=== PATIENT | female | born 1975 | race Caucasian/White ===

== ENCOUNTER 2021-04-22 18:37 | Emergency (ER) | payer BC ==
[~2021-04-22] VITALS: Ht 157.5 cm; Wt 76.7 kg
--- NOTE | 2021-04-22 18:46 | NUR ---
BIB FAMILY C/O FACIAL AREA REDNESS, GENERALIZED REDNESS ALL OVER BODY, BURNING SENSATION, PALPITATION S/P EATING POKE 1/2 HOUR AGO. DENIES SOB. TO ER BED 2, HOOKED TO MONITOR, NOTED ELEVATED HR, CHANGED TO HOSP GOWN, WARM BLANKET PROVIDED. PATIENT AAO x , RESPIRATIONS EVEN AND UNLABORED. DR BARBA AT BEDSIDE
[2021-04-22] MEDS ORDERED: PRED50TA PO (18:58)
[2021-04-22] MEDS ORDERED: DIPH50CA4 PO (18:58)
[2021-04-22] MEDS ORDERED: FAMO-131 PO (18:58)
[2021-04-22] MEDS ORDERED: FAMOTIDINE (20 MG) 20 MG TABLET PO ONE (19:00)
[2021-04-22] MEDS ORDERED: methylPREDNISolone SOD SUCC 125 MG/2ML VIAL IM ONE (19:00)
[2021-04-22] MEDS ORDERED: diphenhydrAMINE HCL 50 MG CAPSULE PO ONE (19:00)
[2021-04-22] MEDS ORDERED: diphenhydrAMINE HCL 50 MG CAPSULE ONE (19:06)
[2021-04-22] MEDS ORDERED: methylPREDNISolone SOD SUCC 125 MG/2ML VIAL ONE (19:06)
[2021-04-22] MEDS ORDERED: FAMOTIDINE (20 MG) 20 MG TABLET ONE (19:07)
--- NOTE | 2021-04-22 19:21 | NUR ---
Patient discharged to home in stable condition. Written and verbal after care instructions given. Patient verbalizes understanding of instruction.
[2021-04-22 19:22] VITALS: BP 132/90
== END 2021-04-22 19:23 | disposition home or self-care (01) ==
LOC: ER 18:39
DX: T78.1XXA Other adverse food reactions, not elsewhere classified, initial encounter (principal); Z79.899 Other long term (current) drug therapy; X58.XXXA Exposure to other specified factors, initial encounter
CPT/HCPCS: 96372; 99283; J2930; Q0163

== ENCOUNTER → 2021-04-23 | Emergency (ER) | payer BC ==
[~2021-04-23] VITALS: Ht 157.5 cm; Wt 72.6 kg
[~2021-04-23] MED LIST: DIPH50CA4 PO; FAMO-131 PO; FAMOTIDINE/PF INJ 20 MG/2 ML VIAL IV ONE; PRED50TA PO; diphenhydrAMINE HCL 50 MG/ML VIAL ONE; methylPREDNISolone SOD SUCC 125 MG/2ML VIAL ONE
--- NOTE | 2021-04-23 21:01 | NUR ---
TO ER BED 7. BIBS C/O "ITCHY THROAT/NECK" WAS SEEN YESTERDAY FOR SAME ISSUE. PT STATES REACTION IS DUE TO EATING FISH. SWELLING AND REDNESS NOTED ON NECK. PT DENIES CHEST PAIN OR SOB. CONNECTED TO MONITOR. AWAITING MD GARCIA
--- NOTE | 2021-04-23 21:40 | NUR ---
IV LINE ESTABLISHED, RAC 20G
[2021-04-23] MEDS: diphenhydrAMINE HCL 50 MG/ML VIAL IV ONE (21:48)
[2021-04-23] MEDS: FAMOTIDINE/PF INJ 20 MG/2 ML VIAL IV ONE (21:49)
[2021-04-23] MEDS: methylPREDNISolone SOD SUCC 125 MG/2ML VIAL IV ONE (21:49)
--- NOTE | 2021-04-23 22:39 | NUR ---
IV removed. Catheter intact and site benign. Pressure and 4x4 applied to site. No bleeding noted.
--- NOTE | 2021-04-23 22:44 | NUR ---
Patient discharged to home in stable condition. Written and verbal after care instructions given. Patient verbalizes understanding of instruction.
[2021-04-23 22:45] VITALS: BP 116/83
== END | disposition home or self-care (01) ==
LOC: ER 20:58
DX: T78.3XXA Angioneurotic edema, initial encounter (principal); Z79.52 Long term (current) use of systemic steroids; Z79.899 Other long term (current) drug therapy; Z91.013 Allergy to seafood
CPT/HCPCS: 96374; 96375; 99284; J1200; J2930; J3490